=== PATIENT | female | born 1955 | race Caucasian/White ===

== ENCOUNTER 2017-03-07 22:12 | Emergency (ER) | payer BC ==
[2017-03-07 22:27] VITALS: BP 132/88; PULSE 79; RESP 18; TEMP 98.1; O2SAT 96
[2017-03-07] MEDS ORDERED: SKIN ADHESIVE (DERMABOND) 1 EACH TP ONE (23:00)
--- NOTE | 2017-03-07 23:02 | EDPHY ---
H & P Stated Complaint: HIT HEAD NO LOC SMALL LAC Time Seen by Provider: 03/07/17 22:35 HPI/ROS: HPI The patient presents with head injury, sustained about 30 min prior to arrival. She hit her head on the corner of her car door as she was reaching into get something out of it. She injured her forehead, has had some bleeding but notices a large egg on her head. She did not lose consciousness. She does not have any headache, nausea or vomiting, vision changes, behavioral changes. She believes her tetanus vaccine is up-to-date. REVIEW OF SYSTEMS Constitutional: No fever, no chills. Eyes: No discharge. Musculoskeletal: No back pain. Skin: No rashes. Neurological: No headache. PMHx: Hypothyroidism Soc Hx: Lives with her PHYSICAL General Appearance: Alert, no distress Eyes: Pupils equal and round no pallor or injection Head: There is a left-sided forehead hematoma with an overlying 1.5 cm superficial longitudinal laceration ENT, Mouth: Mucous membranes moist Respiratory: Breathing comfortably Neurological: A&Ox3 Skin: Warm and dry, no rashes Musculoskeletal: Neck is supple non tender Extremities: symmetrical, full range of motion Psychiatric: Patient is oriented X 3, there is no agitation Source: Patient Exam Limitations: No limitations - Personal History Current Tetanus/Diphtheria Vaccine: Yes Current Tetanus Diphtheria and Acellular Pertussis (TDAP): Yes - Medical/Surgical History Hx Asthma: No Hx Chronic Respiratory Disease: No Hx Diabetes: No Hx Cardiac Disease: No Hx Renal Disease: No Hx Cirrhosis: No Hx Alcoholism: No Hx HIV/AIDS: No Hx Splenectomy or Spleen Trauma: No Other PMH: HYPOTHYROID, LBP, - Social History Smoking Status: Never smoked Constitutional: Initial Vital Signs Temperature (C) 36.7 C 03/07/17 22:25 Heart Rate 79 03/07/17 22:25 Respiratory Rate 18 03/07/17 22:25 Blood Pressure 132/88 H 03/07/17 22:25 O2 Sat (%) 96 03/07/17 22:25 O2 Delivery Mode Room Air Allergies/Adverse Reactions: amoxicillin [Amoxicillin] Allergy (Verified 03/07/17 22:27) bacitracin [From Neosporin] Allergy (Verified 03/07/17 22:27) bacitracin zinc [From Neosporin] Allergy (Verified 03/07/17 22:27) gramicidin D [From Neosporin] Allergy (Verified 03/07/17 22:27) neomycin sulfate [From Neosporin] Allergy (Verified 03/07/17 22:27) polymyxin B [From Neosporin] Allergy (Verified 03/07/17 22:27) polymyxin B sulfate [From Neosporin] Allergy (Verified 03/07/17 22:27) Home Medications: Medication Instructions Recorded Gabapentin 06/04/15 Synthroid 50 mcg (RX) 06/04/15 Medical Decision Making Procedures: LACERATION REPAIR Procedure: Laceration repair. Verbal consent was obtained from the patient. The linear 1.5 cm laceration on the left forehead: The wound was scrubbed, draped and explored to its base with a gloved finger. There were no deep structures involved. . The wound was repaired with Dermabond. The wound repair was simple. The procedure was performed by myself. Differential Diagnosis: 61-year-old healthy female presents after hitting her head on the corner of a car door. She has sustained a forehead hematoma. I do not appreciate any step- offs. She has an overlying laceration which is superficial. Her tetanus vaccine is up-to-date. She does not meet criteria for CT scan of head following nexus 2 criteria. She was advised to use ice, elevation, compression with Konstantin wrap to help with the hematoma. Her laceration was repaired with Dermabond. She will be discharged in good condition. Departure - Departure Disposition: Home, Routine, Self-Care Clinical Impression: Traumatic hematoma of forehead, Laceration of forehead Condition: Good Instructions: Skin Adhesive Care (ED), Facial Contusion (ED) Additional Instructions: Please continue to use plenty of ice. You put it on for 20 min at a time. You can use an Konstantin wrap around her head to help with the swelling. You can take ibuprofen 400 mg and acetaminophen 650 mg every 6 hr as needed for pain. Please avoid washing your forehead for the next 24 hr if at all possible. This will allow the glue time to start working. It will fall off on its own in the next few days. Referrals: Stacey Clement PA [Primary Care Provider] - As per Instructions
== END 2017-03-07 23:22 | disposition home or self-care (01) ==
PROC: 0HQ1XZZ Repair Face Skin, External Approach (ICD-10-PCS; principal; 2017-03-07)
DX: S01.81XA Laceration without foreign body of other part of head, initial encounter (principal); W22.8XXA Striking against or struck by other objects, initial encounter; Y99.8 Other external cause status; Y93.89 Activity, other specified

== ENCOUNTER → 2018-05-29 | Outpatient (CLI) | payer BC | LOC: BMCIMAGING 10:52 | PROVIDERS: ATTEND Urology | DX: K59.00 Constipation, unspecified (principal) ==